=== PATIENT | male | born 1985 | race Caucasian/White ===

== ENCOUNTER 2022-05-19 19:46 | Emergency (ER) | payer SELFPAY ==
[~2022-05-19] VITALS: Ht 167.6 cm; Wt 90.7 kg
[~2022-05-19 19:46] MED LIST: CEPH-570; CLON1TAB
[2022-05-19] MEDS ORDERED: IBUPROFEN 400 MG TABLET ONE (21:39)
[2022-05-19] MEDS ORDERED: ACETAMINOPHEN ES 500 MG TABLET ONE (21:39)
[2022-05-19] MEDS ORDERED: IBUPROFEN 200 MG TABLET ONE (21:39)
[2022-05-19] MEDS: IBUPROFEN 600 MG TABLET PO ONE (21:42)
[2022-05-19] MEDS: ACETAMINOPHEN ES 500 MG TABLET PO ONE (21:43)
[2022-05-19] MEDS ORDERED: IBUP-1953 PO (22:16)
[2022-05-19 22:27] VITALS: BP 134/73
== END 2022-05-19 22:28 | disposition home or self-care (01) ==
LOC: ER 19:48
DX: S13.4XXA Sprain of ligaments of cervical spine, initial encounter (principal); S60.222A Contusion of left hand, initial encounter; S80.812A Abrasion, left lower leg, initial encounter; S21.101A Unspecified open wound of right front wall of thorax without penetration into thoracic cavity, initial encounter; S09.90XA Unspecified injury of head, initial encounter; V89.2XXA Person injured in unspecified motor-vehicle accident, traffic, initial encounter; Y93.89 Activity, other specified; Y92.89 Other specified places as the place of occurrence of the external cause; Y99.8 Other external cause status
CPT/HCPCS: 70450-TC; 71250-TC; 72125-TC